=== PATIENT | female | born 1955 | race African-American/Black ===

== ENCOUNTER 2021-03-16 09:52 | Inpatient (IN) | payer MEDICARE, MEDICAID ==
[~2021-03-16] VITALS: Ht 160 cm; Wt 82.6 kg
[2021-03-16 09:56] VITALS: BP 143/89
[2021-03-16] MEDS ORDERED: ACETAMINOPHEN325 MG PO ×2 (10:04→10:14)
[2021-03-16] MEDS ORDERED: BIOFREEZE118 ML TOP (10:05)
[2021-03-16] MEDS ORDERED: LIPITOR40 MG PO ×2 (10:05→12:55)
[2021-03-16] MEDS ORDERED: NORVASC5 M1 PO (10:05)
[2021-03-16] MEDS ORDERED: BACLOFEN20 MG PO ×2 (10:05→10:15)
[2021-03-16] MEDS ORDERED: CHLORASEPTIC20 M1 MUCOUS MEM (10:06)
[2021-03-16] MEDS ORDERED: COUGH DROPS5 MG MUCOUS MEM (10:07)
[2021-03-16] MEDS ORDERED: COLACE100 MG PO ×2 (10:07→12:56)
[2021-03-16] MEDS ORDERED: CYCLOBENZAPRINE5 MG PO ×2 (10:08)
[2021-03-16] MEDS ORDERED: LISINOPRIL20 MG PO ×2 (10:09→12:58)
[2021-03-16] MEDS ORDERED: GERI-LANTA LIQ355 M1 PO (10:09)
[2021-03-16] MEDS ORDERED: HYDROCODON-ACE1 EAC8 PO (10:09)
[2021-03-16] MEDS ORDERED: MILK OF MA400 MG/5 M PO (10:10)
[2021-03-16] MEDS ORDERED: MELATONIN10 M3 PO (10:10)
[2021-03-16] MEDS ORDERED: MIRALAX119 GM PO (10:11)
[2021-03-16] MEDS ORDERED: OMEPRAZOLE 20 M20 M1 PO (10:11)
[2021-03-16] MEDS ORDERED: REMERON 30 MG T30 M1 PO ×2 (10:11→12:58)
[2021-03-16] MEDS ORDERED: MULTIPLE VITAM1 EAC4 PO (10:11)
[2021-03-16] MEDS ORDERED: MINERAL OIL HEAV1 ML PO (10:11)
[2021-03-16] MEDS ORDERED: PLAVIX 75 MG TA75 MG PO (10:12)
[2021-03-16] MEDS ORDERED: TRAZODONE HCL50 MG PO (10:12)
[2021-03-16] MEDS ORDERED: TUMS200 MG PO (10:13)
[2021-03-16] MEDS ORDERED: ANALGESIC TOP (10:14)
[2021-03-16] MEDS ORDERED: VITAMIN D325 MC3 PO (10:15)
[2021-03-16] MEDS ORDERED: MAGNESIUM400 M1 PO (10:16)
[2021-03-16] MEDS ORDERED: CLOTRIMAZOLE-BE15 GM TOP (10:16)
[2021-03-16] MEDS ORDERED: VITAMINE B-1100 MG PO (10:16)
[2021-03-16] MEDS ORDERED: VOLTAREN ARTHRI20 GM TOP (10:17)
[2021-03-16 10:24] LABS: ABSOLUTE BASOPHILS 0.2 thou/uL (0.0-0.2); ABSOLUTE EOSINOPHILS 0.1 thou/uL (0.0-0.7); ABSOLUTE LYMPHOCYTES 2.5 thou/uL (0.8-5.3); ABSOLUTE MONOCYTES 0.6 thou/uL (0.0-1.2); ABSOLUTE NEUTROPHILS 8.5 thou/uL (1.6-8.1); BASOPHILS 1.5 %; EOSINOPHILS 0.6 %; HEMATOCRIT 38.5 % (37.0-47.0); HEMOGLOBIN 12.5 gm/dL (12.0-15.0); LYMPHOCYTES 21.2 %; MCHC 32.5 g/dL (28.0-37.0); MCV 89.3 fL (80.0-100.0); MONOCYTES 4.7 %; MPV 8.1 fl. (7.2-11.1); NUCLEATED RBCS 0 /100WBC; PLATELET COUNT* 324 thou/uL (150-400); RBC 4.31 mil/uL (4.20-5.00); RDW-CV 14.2 % (10.5-14.5); WBC 11.8 thou/uL (4.0-11.0)
[2021-03-16 10:28] LABS: CALCIUM 8.8 mg/dL (8.5-10.1); CREATININE 0.9 mg/dL (0.6-1.3); POTASSIUM 3.7 mmol/L (3.5-5.1)
[2021-03-16 10:32] LABS: ALBUMIN 3.1 g/dL (3.4-5.0); TOTAL BILIRUBIN 0.3 mg/dL (<0.1-1.0); TOTAL PROTEIN 7.8 g/dL (6.4-8.2)
[2021-03-16 10:33] LABS: APTT 22.8 Seconds (25.0-31.3)
[2021-03-16] MEDS ORDERED: NORVASC5 MG PO (12:54)
[2021-03-16] MEDS ORDERED: BACLOFEN 10MG T10 MG PO (12:56)
[2021-03-16] MEDS ORDERED: FLEXERIL PO (12:57)
[2021-03-16 14:12] VITALS: BP 147/84
[2021-03-16 15:02] VITALS: BP 141/88
--- NOTE | 2021-03-16 16:05 | EKG ---
[place] [address] ELECTROCARDIOGRAM REPORT Name: ARIE MENDOZA Room: [address] IN [facility].#: [id number] Admission: 03/16/21 Attend Phys: Jose Luis Whitley Discharge: Date of : 51 Date of Service: 03/16/21 0953 Report #: [id number] THIS REPORT FOR: //name// [facility] ED Test Date: 2021-03-16 Test Time: 09:53:13 Pat Name: ARIE MENDOZA Department: Room: [facility] Gender: F Fagoter: : 1955 Requested By: Abiodun Goodwin Order Number: [id number] MD: Julian Gonzalez Measurements Intervals [place] Rate: 100 P: 41 MA: 158 QRS: 17 QRSD: 93 T: 16 QT: 384 QTc: 496 Interpretive Statements Sinus tachycardia Borderline T abnormalities, anterior leads Borderline prolonged QT interval No previous ECG available for comparison Electronically Signed On 03-16-2021 16:05:29 COMMUNICATIONS MEDIA PROFESSOR by Julian Gonzalez [email or web address] <ELECTRONICALLY SIGNED> By: Julian Gonzalez MD, [facility] 03/16/21 1605 0953 [id number] Julian Gonzalez MD, [facility] /EPI
[2021-03-16 17:18] VITALS: BP 141/88
[2021-03-16 18:41] LABS: URINE BILIRUBIN NEGATIVE (Negative); URINE BLOOD TRACE (Negative); URINE CLARITY CLEAR; URINE COLOR YELLOW; URINE GLUCOSE-RANDOM 2+ (Negative); URINE KETONES NEGATIVE (Negative); URINE LEUKOCYTES-REFLEX TRACE (Negative); URINE NITRITE-REFLEX NEGATIVE (Negative); URINE PROTEIN NEGATIVE (Negative); URINE UROBILINOGEN 0.2 E.U./dl (0.2-1.0)
[2021-03-16 18:59] LABS: CASTS None Seen /LPF (None Seen); MUCUS None Seen strn/LPF (None Seen); SQUAMOUS >10 Many /LPF (0-3); URINE WBC-REFLEX >25 Many /HPF (0-5)
[2021-03-16 19:00] LABS: CRYSTALS None Seen /LPF (None Seen); URINE RBC 0-2 Rare /HPF (0-2); WBC CLUMPS Few (None Seen)
[2021-03-16 22:00] VITALS: BP 144/67
[2021-03-17] VITALS (7 sets, daily range): BP systolic 131–180; BP diastolic 65–94
--- NOTE | 2021-03-17 10:34 | 2DMMODE ---
[place] [address] 2 D/M-MODE ECHOCARDIOGRAM Name: ARIE MENDOZA Room: [address] IN [facility]#: [id number] Admission: 03/16/21 Attend Phys: Jose Luis Whitley Discharge: Date of : 51 Date of Service: 03/17/21 1034 Report #: [id number] THIS REPORT FOR: cc: [facility] - Clinic physician unknown [facility] - Clinic physician unknown Cayden Lafleur MD [facility] ~ APPROVED REPORT Study performed: 03/16/2021 15:51:22 EXAM: Comprehensive 2D, Doppler, and color-flow Echocardiogram Patient Location: In-Patient Room #: [facility] Status: routine BSA: 1.85 HR: 96 bpm BP: 141/88 mmHg Rhythm: NSR Other Information Study Quality: Good Indications Syncope 2D Dimensions IVSd: 12.70 (7-11mm) LVOT Diam: 18.98 (18-24mm) LVDd: 37.60 mm PWd: 10.83 (7-11mm) Ascending Ao: 30.61 (22-36mm) LVDs: 22.57 (25-40mm) Aortic Root: 30.36 mm Volumes Left Atrial Volume (Systole) LA ESV Index: 16.00 mL/m2 Aortic Valve AoV Peak Jorge.: 1.50 m/s AO Peak Gr.: 9.04 mmHg LVOT Max P.55 mmHg AO Mean Gr.: 4.47 mmHg LVOT Mean P.19 mmHg LVOT Max V: 1.46 m/s AO V2 VTI: 25.45 cm LVOT Mean V: 0.94 m/s ALTAGRACIA (VTI): 2.79 cm2 LVOT V1 VTI: 25.08 [place] [address] 2 D/M-MODE ECHOCARDIOGRAM Name: ARIE MENDOZA Room: [address] IN [facility].#: [id number] Admission: 03/16/21 Attend Phys: Jose Luis Whitley Discharge: Date of : 51 Date of Service: 03/17/21 1034 Report #: [id number] Mitral Valve E/A Ratio: 0.69 MV Decel. Time: 271.42 ms MV E Max Jorge.: 0.79 m/s MV PHT: 78.71 ms MVA (PHT): 2.79 cm2 TDI E/Lateral E': 9.88 E/Medial E': 9.88 Medial E' Jorge.: 0.08 m/s Lateral E' Jorge.: 0.08 m/s Left Ventricle The left ventricle is normal size. There is normal LV segmental wall motion. There is normal left ventricular wall thickness. Left ventricular systolic function is normal. LVEF is 60-65%. Grade I - abnormal relaxation pattern. Right Ventricle The right ventricle is normal size. The right ventricular systolic function is normal. Atria The left atrium size is normal. The right atrium size is normal. Aortic Valve The aortic valve is normal in structure. No aortic regurgitation is present. There is no aortic valvular stenosis. There is normal aortic valve excursion. No hemodynamically significant valvular aortic stenosis. Mitral Valve The mitral valve is normal in structure. There is no mitral valve regurgitation noted. No evidence of mitral valve stenosis. Tricuspid Valve The tricuspid valve is normal in structure. Trace tricuspid regurgitation. Unable to assess PA pressure. Pulmonic Valve The pulmonary valve is normal in structure. There is no pulmonic valvular regurgitation. Great Vessels The aortic root is normal in size. IVC [place] [address] 2 D/M-MODE ECHOCARDIOGRAM Name: ARIE MENDOZA Room: [address] IN [facility]#: [id number] Admission: 03/16/21 Attend Phys: Jose Luis Whitley Discharge: Date of : 51 Date of Service: 03/17/21 1034 Report #: [id number] collapses >50% with inspiration. Pericardium There is no pericardial effusion. <Conclusion> The left ventricle is normal size. There is normal left ventricular wall thickness. Left ventricular systolic function is normal. LVEF is 60-65%. Grade I - abnormal relaxation pattern. IVC is normal in size and collapses >50% with inspiration. <ELECTRONICALLY SIGNED> By: Cayden Lafleur MD, FACC 03/17/21 1034 33 [phone] Cayden Lafleur MD, FACC /INF
[2021-03-18 00:16] VITALS: BP 151/77
[2021-03-18 04:00] VITALS: BP 151/83
[2021-03-18 08:00] VITALS: BP 145/58
--- NOTE | 2021-03-18 09:43 | EEG ---
[address] [address] EEG STUDY REPORT Name: ARIE MENDOZA Room: [address] IN .R.#: [id number] Admission: 03/16/21 Attend Phys: Colton Castaneda Discharge: Date of : 51 Report #: [id number] THIS REPORT FOR: cc: [facility] - Clinic physician unknown [facility] - Clinic physician unknown Saeid Church MD ~ DATE OF SERVICE: 03/17/2021 This patient is being evaluated for an episode of syncope. EEG is being done to evaluate the patient for any epilepsy. The patient's EEG is about 7 Hz and 15 microvolt. It is a low voltage slow activity. The patient went to sleep and is associated with bilateral slowing and vertex sharp waves. Photic stimulation is unremarkable. IMPRESSION: This is an abnormal EEG because it is disorganized and poorly formed. That is a nonspecific finding which can occur with dementia, effect of psychotropic medications, encephalopathy, etc. Clinical correlation is recommended. Thank you very much for this referral. <ELECTRONICALLY SIGNED> By: Saeid Church MD 03/18/21 0943 0701 [id number] Church MD /nt
--- NOTE | 2021-03-18 09:43 | CON ---
[address] [address] CONSULTATION Name: KELLYARIE E Room: [address] IN M.R.#: [id number] Admission: 03/16/21 Attend Phys: Colton Castaneda Discharge: Date of : 51 Report #: [id number] THIS REPORT FOR: cc: [facility] - Clinic physician unknown [facility] - Clinic physician unknown Saeid Church MD ~ DATE OF CONSULTATION: 03/16/2021 HISTORY OF PRESENT ILLNESS: This is a 65-year-old female patient who is a very poor historian. The only thing she can tell me is that she was in [facility] with left-sided weakness. When she was there, it is not clear. She lives in a chcf and she was witnessed to have what looks like an episode of syncope. This was noticed by bystander as per notes in the chart. REVIEW OF SYSTEMS: Positive for stroke with what looks like significant left-sided weakness, hyperlipidemia, depression, hypertension, also with perforation, constipation. This is a relevant 14-point review of system, I can get. PAST MEDICAL HISTORY: Positive for stroke with residual left-sided weakness. FAMILY HISTORY: Negative for early age stroke. SOCIAL HISTORY: She has a history of smoking and looks like she still continued to smoke. PHYSICAL EXAMINATION: The patient's examination indicates she is alert and responsive. She could not tell me the exact date. She was pretty apathetic doing the mental status examination. Cranial nerve examinations, I could not tell about the visual field. She does not have a prominent left facial palsy, but does appear to have some. She has very little movement in the left arm, but left leg she moves about 2/5 and maybe 3/5. I tried to do the position sense, sometimes she gets it right and sometimes she does not. She does appear to be spastic on the left side. Cardiac examination is noncontributory. Blood pressure is 180/93, respirations 18, pulse is 96, temperature is 98.6. LABORATORY DATA: White count is 11.8. CT scan demonstrated a large old stroke. She had a head CTA, which demonstrated chronically occluded right carotid. IMPRESSION: 1. Status post cerebrovascular accident of the right cerebral hemisphere secondary to occlusion of the right carotid artery. Nothing much can be done about that. 2. This episode is probably cardiac, but she is also predisposed to develop seizures. Because of that, I ordered an EEG. We will [place] [address] CONSULTATION Name: ARIE MENDOZA Room: [address]#: [id number] Admission: 03/16/21 Attend Phys: Colton Castaneda Discharge: Date of : 51 Report #: [id number] to see if she had a new stroke and I discussed all of this with the patient. She understood somewhat and she wanted to proceed with these testing. More than 50 minutes of time was spent taking care of this patient today and majority was spent in counseling and reviewing the records and imaging study and coordinating her care. <ELECTRONICALLY SIGNED> By: Saeid Church MD 03/18/21 0943 [id number] 14Saeid Church MD /nt
[2021-03-18 11:55] VITALS: BP 147/86
[2021-03-18 14:17] VITALS: BP 147/86
== END 2021-03-19 00:51 | DRG 689 ==
LOC: M.ERS 09:52 → M.2W 12:01 → M.TBA-ER 12:01 → M.2W 14:04
PROVIDERS: Emergency Medicine; ADMIT Internal Medicine; ATTEND Internal Medicine
DX: N39.0 Urinary tract infection, site not specified (principal); G93.41 Metabolic encephalopathy; I69.354 Hemiplegia and hemiparesis following cerebral infarction affecting left non-dominant side; I95.1 Orthostatic hypotension; Z20.822 Contact with and (suspected) exposure to COVID-19; E78.5 Hyperlipidemia, unspecified; F32.9 Major depressive disorder, single episode, unspecified; I10 Essential (primary) hypertension; F17.210 Nicotine dependence, cigarettes, uncomplicated; R73.9 Hyperglycemia, unspecified; K59.00 Constipation, unspecified; I65.21 Occlusion and stenosis of right carotid artery; R01.1 Cardiac murmur, unspecified; Z88.2 Allergy status to sulfonamides; Z88.8 Allergy status to other drugs, medicaments and biological substances